=== PATIENT | male | born 1960 | race Caucasian/White ===

== ENCOUNTER → 2017-04-13 | Outpatient (REF) ==
--- NOTE | 2017-04-13 22:55 | REP ---
Clinical: Pain and disability. Technique: AP, lateral, open mouth views of the cervical spine. Findings: Alignment and lordosis maintained. Minimal multilevel degenerative changes include endplate sclerosis and subtle disc space narrowing. No acute fracture / compression injury or subluxation. No significant osteophytosis or spurring. Spinous processes appear intact. Prevertebral soft tissues normal. Impression: Minimal age-related multilevel degenerative changes. Signed by Toby Rodriguez MD 04/13/2017 10:46 P
== END ==
LOC: M SMT 14:28
PROVIDERS: ATTEND Internal Medicine
DX: Z02.71 Encounter for disability determination (principal)